=== PATIENT | female | born 1970 | race Caucasian/White ===

== ENCOUNTER 2018-11-23 18:35 | Inpatient (IN) | payer MEDICAID ==
[~2018-11-23] VITALS: Ht 160 cm; Wt 64.8 kg
[~2018-11-23 18:35] MED LIST: CARI350T PO; HYDR-3965; LORA-192 PO; MO6B PO
[2018-11-23 20:40] VITALS: BP 112/65
[2018-11-23] MEDS: ZOLPIDEM TARTRATE 10 MG TABLET PO PRN (20:53)
[2018-11-23] MEDS ORDERED: NICOTINE 14 MG/24 HOUR PATCH TD PRN (21:30)
[2018-11-23] MEDS ORDERED: ALBUTEROL SULFATE HFA 90 MCG/PUFF 8 GM INHALER IH PRN (21:30)
[2018-11-23] MEDS ORDERED: MAGNESIUM HYDROXIDE SUSPENSION 30 ML UDCUP PO PRN (21:30)
[2018-11-23] MEDS ORDERED: MAG HYDROX/AL HYDROX/SIMETH ES 30 ML SUSPENSION UDCUP PO PRN (21:30)
[2018-11-23] MEDS ORDERED: ONDANSETRON HCL 4 MG TABLET PO PRN (21:30)
[2018-11-23] MEDS ORDERED: PETROLATUM,WHITE 71 GM JELLY TP PRN (21:30)
[2018-11-23] MEDS ORDERED: CloNIDine HCL 0.1 MG TABLET PO PRN (21:30)
[2018-11-23] MEDS ORDERED: IBUPROFEN 400 MG TABLET PO PRN (21:30)
[2018-11-23] MEDS ORDERED: DOCUSATE SODIUM 100 MG CAPSULE PO PRN (21:30)
[2018-11-23] MEDS ORDERED: GuaiFENesin/D-METHORPHAN [SUGAR-FREE] 200-20MG/10 ML SYRUP UDCUP PO PRN (21:30)
[2018-11-23] MEDS ORDERED: ACETAMINOPHEN 325 MG TABLET PO PRN (21:30)
[2018-11-23] MEDS: HALOPERIDOL 5 MG TABLET PO PRN (21:39)
[2018-11-23] MEDS: LORazepam 2 MG TABLET PO PRN (22:20)
[2018-11-24 06:16] VITALS: BP 108/62
[2018-11-24 08:21] VITALS: BP 116/63
[2018-11-24 08:24] LABS: BASOPHILS % (AUTO) 0.4 % (0.0-2.0); EOSINOPHILS % (AUTO) 1.3 % (1.0-6.0); HEMATOCRIT 36.2 % (36-46); HEMOGLOBIN 12.3 g/dL (12.0-16.0); LYMPHOCYTES # (AUTO) 3.1 K/uL (1.0-4.8); LYMPHOCYTES % (AUTO) 38.9 % (22.0-44.0); MEAN CORPUSCULAR HEMOGLOBIN 31.1 pg (26.0-34.0); MEAN CORPUSCULAR VOLUME 91 fL (80-100); MONOCYTES # (AUTO) 0.5 K/uL (0.1-1.0); MONOCYTES % (AUTO) 5.9 % (2.0-9.0); NEUTROPHILS # (AUTO) 4.3 K/uL (1.8-7.7); NEUTROPHILS % (AUTO) 53.5 % (40.0-70.0); PLATELET COUNT (AUTO) 196 K/uL (150-450); RED BLOOD CELL COUNT(AUTO) 3.96 MIL/uL (4.00-5.20); RED CELL DISTRIBUTION WIDTH 13.7 % (11.5-14.5)
[2018-11-24 09:05] LABS: ALANINE AMINOTRANSFERASE 16 U/L (12-78); ALBUMIN 3.2 g/dL (3.4-5.0); ALKALINE PHOSPHATASE 76 U/L (46-116); ANION GAP 9 mmol/L (8-16); ASPARTATE AMINOTRANSFERASE 14 U/L (15-37); BILIRUBIN,TOTAL 0.3 mg/dL (0.1-1.0); CALCIUM, TOTAL 8.5 mg/dL (8.8-10.5); CARBON DIOXIDE 25 mmol/L (22-29); CHLORIDE 108 mmol/L (98-107); CHOL/HDL RATIO 4.2 (3.9-5.7); CHOLESTEROL 176 mg/dL (131-200); CREATININE 0.84 mg/dL (0.60-1.30); FREE T4 (FREE THYROXINE) 0.87 ng/dL (0.76-1.46); GLOMERULAR FILTR. RATE CALC > 60 mL/min (>60); GLUCOSE,RANDOM 84 mg/dL (70-110); HCG,QUANTITATIVE 2 mIU/mL (0-6); HDL CHOLESTEROL 42 mg/dL (40-60); LDL CHOL (CALC.) 118 mg/dL (0-130); POTASSIUM 3.7 mmol/L (3.5-5.1); SODIUM SERUM 142 mmol/L (136-145); THYROID STIMULATING HORMONE 2.05 uIU/mL (0.36-3.74); TOTAL PROTEIN, SERUM 6.1 g/dL (6.4-8.2); TRIGLYCERIDES 78 mg/dL (15-150); UREA NITROGEN, BLOOD 10 mg/dL (7-18)
[2018-11-24 09:19] LABS: HEMOGLOBIN A1C 6.1 % (4.5-6.2)
[2018-11-24] MEDS: LORazepam 2 MG TABLET PO PRN ×2 (12:49→20:11)
[2018-11-24] MEDS: FLUoxetine HCL 20 MG CAPSULE PO SCH (12:49)
[2018-11-24] MEDS: LOPERAMIDE HCL 2 MG CAPSULE PO PRN (14:57)
[2018-11-24] MEDS: HALOPERIDOL 5 MG TABLET PO PRN (15:58)
[2018-11-24 16:43] VITALS: BP 103/57
[2018-11-24] MEDS: RisperiDONE 2 MG TABLET PO SCH (20:11)
[2018-11-25] VITALS (8 sets, daily range): BP systolic 92–126; BP diastolic 49–83
[2018-11-25] MEDS: FLUoxetine HCL 20 MG CAPSULE PO SCH (08:42)
[2018-11-25] MEDS: NICOTINE 21 MG/24 HOUR PATCH TD SCH (08:43)
[2018-11-25 12:48] LABS: GLUCOMETER DEV NAME(LOC) BV2X.; GLUCOSE,POINT OF CARE 111 MG/DL (70-110)
[2018-11-25] MEDS: LORazepam 2 MG TABLET PO PRN (18:19)
[2018-11-25] MEDS: LOPERAMIDE HCL 2 MG CAPSULE PO PRN (20:23)
[2018-11-25] MEDS: ZOLPIDEM TARTRATE 10 MG TABLET PO PRN (20:23)
[2018-11-25] MEDS: RisperiDONE 2 MG TABLET PO SCH (20:24)
[2018-11-26] VITALS: BP 126/83
[2018-11-26 06:41] VITALS: BP 124/86
[2018-11-26 08:03] VITALS: BP 100/65
[2018-11-26] MEDS: FLUoxetine HCL 20 MG CAPSULE PO SCH (08:26)
[2018-11-26] MEDS: NICOTINE 21 MG/24 HOUR PATCH TD SCH (09:13)
[2018-11-26] MEDS: LORazepam 2 MG TABLET PO PRN (10:23)
[2018-11-26] MEDS ORDERED: FLUO-191 PO ×2 (11:31→12:12)
[2018-11-26] MEDS ORDERED: RISP2 PO ×2 (11:31→12:12)
== END 2018-11-26 13:20 | disposition home or self-care (01) | DRG 750 ==
LOC: B2S 19:06
PROVIDERS: ADMIT Psychiatry & Neurology Child & Adolescent Psychiatry; ATTEND Psychiatry & Neurology Child & Adolescent Psychiatry
DX: F25.9 Schizoaffective disorder, unspecified (principal); R45.851 Suicidal ideations; E83.51 Hypocalcemia; F32.9 Major depressive disorder, single episode, unspecified; F41.9 Anxiety disorder, unspecified; E88.09 Other disorders of plasma-protein metabolism, not elsewhere classified; M54.9 Dorsalgia, unspecified; G40.909 Epilepsy, unspecified, not intractable, without status epilepticus; G89.29 Other chronic pain; Z86.73 Personal history of transient ischemic attack (TIA), and cerebral infarction without residual deficits; Z79.899 Other long term (current) drug therapy
CPT/HCPCS: 83036; 84439; 84443; 87081

== ENCOUNTER 2018-11-25 13:41 | Emergency (ER) | payer MEDICAID, OTHER ==
[~2018-11-25] VITALS: Ht 170.2 cm; Wt 66.7 kg
[2018-11-25] MEDS ORDERED: SODIUM CHLORIDE 0.9% 1,000 ML IV ONE (15:00)
[2018-11-25 15:12] LABS: BASOPHILS % (AUTO) 0.6 % (0.0-2.0); EOSINOPHILS % (AUTO) 0.7 % (1.0-6.0); HEMATOCRIT 36.5 % (36-46); HEMOGLOBIN 12.5 g/dL (12.0-16.0); LYMPHOCYTES # (AUTO) 1.9 K/uL (1.0-4.8); MEAN CORPUSCULAR HGB CONC 34.2 G/dL (31.0-37.0); MEAN CORPUSCULAR VOLUME 91 fL (80-100); MONOCYTES # (AUTO) 0.4 K/uL (0.1-1.0); MONOCYTES % (AUTO) 4.6 % (2.0-9.0); NEUTROPHILS # (AUTO) 6.3 K/uL (1.8-7.7); NEUTROPHILS % (AUTO) 72.1 % (40.0-70.0); PLATELET COUNT (AUTO) 198 K/uL (150-450); RED BLOOD CELL COUNT(AUTO) 4.03 MIL/uL (4.00-5.20); RED CELL DISTRIBUTION WIDTH 13.8 % (11.5-14.5)
[2018-11-25 15:25] LABS: ANION GAP 7 mmol/L (8-16); CALCIUM, TOTAL 8.8 mg/dL (8.8-10.5); CARBON DIOXIDE 29 mmol/L (22-29); CHLORIDE 106 mmol/L (98-107); CREATININE 0.86 mg/dL (0.60-1.30); GLOMERULAR FILTR. RATE CALC > 60 mL/min (>60); GLUCOSE,RANDOM 94 mg/dL (70-110); SODIUM SERUM 142 mmol/L (136-145); UREA NITROGEN, BLOOD 15 mg/dL (7-18)
[2018-11-25 15:31] LABS: ALANINE AMINOTRANSFERASE 18 U/L (12-78); ALBUMIN 3.2 g/dL (3.4-5.0); ALKALINE PHOSPHATASE 84 U/L (46-116); ASPARTATE AMINOTRANSFERASE 11 U/L (15-37); BILIRUBIN,TOTAL 0.2 mg/dL (0.1-1.0); CREATINE KINASE, TOTAL ONLY 53 U/L (26-192); TOTAL PROTEIN, SERUM 6.6 g/dL (6.4-8.2)
[2018-11-25 16:10] LABS: B-TYPE NATRIURETIC PEPTIDE 16 pg/mL (0-100)
[2018-11-25] MEDS ORDERED: ACETAMINOPHEN 500 MG TABLET PO ONE (17:30)
[2018-11-25] MEDS ORDERED: LORazepam 1 MG TABLET PO ONE (17:30)
[2018-11-25 17:40] VITALS: BP 113/72
[2018-11-26] MEDS ORDERED: RISP2 PO ×2 (11:31→12:12)
[2018-11-26] MEDS ORDERED: FLUO-191 PO ×2 (11:31→12:12)
== END 2018-11-25 17:55 | disposition home or self-care (01) ==
LOC: EMS 13:45
DX: N39.0 Urinary tract infection, site not specified (principal)
CPT/HCPCS: 71045; 80053; 82550; 83880; 84484; 85025; 93005; 96360; 99285; J7030